=== PATIENT | male | born 1965 | race Caucasian/White ===

== ENCOUNTER 2018-12-17 17:30 | Emergency (ER) | payer SELFPAY ==
--- NOTE | 2018-12-17 19:09 | RAD REPORT ---
EXAM DESCRIPTION: RAD - Shoulder Left 2 View - 12/17/2018 6:49 pm CLINICAL HISTORY: Left shoulder pain FINDINGS: No fracture or dislocation is seen.
--- NOTE | 2018-12-17 19:15 | ER ---
Nurse's Notes [facility] Name: Cortez Mckeon Age: 53 yrs Sex: Male : 1965 Arrival Date: 12/17/2018 Time: 17:34 Bed 28 Private MD: Diagnosis: Other sprain of shoulder joint Presentation: 12/17 17:39 Presenting complaint: Slipped while holding on to bar above head with left arm, now c/o hb left arm pain 2/10. Transition of care: patient was not received from another setting of care. Onset of symptoms was December 17, 2018. Risk Assessment: Do you want to hurt yourself or someone else? Patient reports no desire to harm self or others. Initial Sepsis Screen: Does the patient meet any 2 criteria? No. Patient's initial sepsis screen is negative. Does the patient have a suspected source of infection? No. Patient's initial sepsis screen is negative. Care prior to arrival: None. 17:39 Method Of Arrival: Ambulatory 17:39 Acuity: AGUS 4 hb Triage Assessment: 18:05 Injury Description: pulled the muscle. rv Historical: - Allergies: 17:40 No Known Allergies; hb - Home Meds: 17:40 None [Active]; hb - PMHx: 17:40 None; hb - PSHx: 17:40 None; hb - Immunization history:: Adult Immunizations up to date. - Social history:: Smoking status: Patient/guardian denies using tobacco. - Ebola Screening: : No symptoms or risks identified at this time. Screenin:04 Abuse screen: Denies threats or abuse. Denies injuries from another. Nutritional rv screening: No deficits noted. Tuberculosis screening: No symptoms or risk factors identified. Fall Risk None identified. Assessment: 18:03 General: Appears in no apparent distress. comfortable, Behavior is calm, cooperative. rv Pain: Complains of pain in left shoulder Pain currently is 2 out of 10 on a pain scale. at worst was 5 out of 10 on a pain scale. Neuro: Level of Consciousness is awake, alert, obeys commands, Oriented to person, place, time, situation. Cardiovascular: Patient's skin is warm and dry. Respiratory: Airway is patent. GI: No signs and/or symptoms were reported involving the gastrointestinal system. : No signs and/or symptoms were reported regarding the genitourinary system. EENT: No signs and/or symptoms were reported regarding the EENT system. Derm: Skin is intact. Musculoskeletal: Range of motion: limited in left shoulder Swelling absent Reports pain in left shoulder. Vital Signs: 17:39 BP 140 / 74; Pulse 57; Resp 16; Temp 97.5; Pulse Ox 98% on R/A; Weight 60 kg; Height 5 hb ft. 6 in. (168 cm); Pain 2/10; 19:24 BP 129 / 63; Pulse 61; Resp 16; Temp 98; Pulse Ox 99% on R/A; rv 17:39 Body Mass Index 21.26 (60.00 kg, 168 cm) hb ED Course: 17:34 Patient arrived in ED. as 17:39 Triage completed. hb 17:39 Arm band placed on. hb 17:41 Edwin Cardoso PA is PHCP. [facility] 17:41 Denilson Hill MD is Attending Physician. [facility] 18:00 Christopher Casanova, DEBORAH is Primary Nurse. rv 18:05 Patient has correct armband on for positive identification. Bed in low position. Call rv light in reach. Side rails up X 1. Pulse ox on. NIBP on. Warm blanket given. Ice pack to injury. 18:51 Shoulder Left (2 View) XRAY In Process Unspecified. EDMS 19:23 No provider procedures requiring assistance completed. Patient did not have IV access rv during this emergency room visit. Sling applied to left arm. Administered Medications: No medications were administered Outcome: 19:13 Discharge ordered by . [facility] 19:23 Discharged to home ambulatory. rv 19:23 Condition: good 19:23 Discharge instructions given to patient, Instructed on discharge instructions, follow up and referral plans. medication usage, Demonstrated understanding of instructions, follow-up care, medications, Prescriptions given X 1. 19:24 Patient left the ED. rv Signatures: Dispatcher [employer] EDMS Edwin Cardoso PA PA jmm Martinez, Amelia as Baxter, Heather, RN RN Christopher Casanova, DEBORAH RN rv
--- NOTE | 2018-12-17 19:15 | EDPHYS ---
Physician Documentation [facility] Name: Cortez Mckeon Age: 53 yrs Sex: Male : 1965 Arrival Date: 12/17/2018 Time: 17:34 Bed 28 Private MD: ED Physician Denilson Hill HPI: 12/17 17:58 This 53 yrs old Male presents to ER via Ambulatory with complaints of jmm Shoulder Injury. 17:58 The patient or guardian complains of an injury, pain, that is acute. Onset: The jmm symptoms/episode began/occurred acutely, just prior to arrival. Modifying factors: the symptoms are alleviated by remaining still, The symptoms are aggravated by movement, rotation of arm. Associated signs and symptoms: Pertinent negatives: chest pain, diaphoresis, dyspnea, neck pain, shortness of breath, tingling. This is a 53 year old male with no chronic medical conditions that presents to the ED with complaints of left shoulder pain which began after the patient tripped and grabbed a rail with his left arm. Patient denies other injury. . Historical: - Allergies: 17:40 No Known Allergies; hb - Home Meds: 17:40 None [Active]; hb - PMHx: 17:40 None; hb - PSHx: 17:40 None; hb - Immunization history:: Adult Immunizations up to date. - Social history:: Smoking status: Patient/guardian denies using tobacco. - Ebola Screening: : No symptoms or risks identified at this time. ROS: 17:58 Constitutional: Negative for fever, chills, and weight loss, Cardiovascular: Negative jmm for chest pain, palpitations, and edema, Respiratory: Negative for shortness of breath, cough, wheezing, and pleuritic chest pain. 17:58 MS/extremity: Positive for injury or acute deformity, pain. 17:58 All other systems are negative. Exam: 17:58 Constitutional: This is a well developed, well nourished patient who is awake, alert, jmm and in no acute distress. Head/Face: atraumatic. Eyes: EOMI, no conjunctival erythema appreciated ENT: Moist Mucus Membranes Neck: Trachea midline, Supple Chest/axilla: Normal chest wall appearance and motion. Cardiovascular: Regular rate and rhythm. No edema appreciated Respiratory: Normal respirations, no respiratory distress appreciated Abdomen/GI: Non distended, soft Back: Normal ROM Skin: General appearance color normal 17:58 Musculoskeletal/extremity: painful external rotation appreciated, full radial pulse, full electric range preparer strength, no bony tenderness appreciated, compartments are soft, NVI. 17:58 Skin: Appearance: Color: normal in color. 17:58 Neuro: Orientation: is normal, Mentation: is normal, Memory: is normal. 17:58 Psych: Behavior/mood is pleasant, cooperative. Vital Signs: 17:39 BP 140 / 74; Pulse 57; Resp 16; Temp 97.5; Pulse Ox 98% on R/A; Weight 60 kg; Height 5 hb ft. 6 in. (168 cm); Pain 2/10; 19:24 BP 129 / 63; Pulse 61; Resp 16; Temp 98; Pulse Ox 99% on R/A; rv 17:39 Body Mass Index 21.26 (60.00 kg, 168 cm) hb Procedures: 17:58 Splinting: Splint applied to left arm using sling, Examined by me, post splint [facility] application: neurovascular intact, 2+ distal pulses palpable, brisk capillary refill noted, Patient tolerated well. MDM: 17:58 Patient medically screened. [facility] 19:13 Data reviewed: vital signs, nurses notes. Counseling: I had a detailed discussion with [facility] the patient and/or guardian regarding: the historical points, exam findings, and any diagnostic results supporting the discharge/admit diagnosis, radiology results, the need for outpatient follow up, to return to the emergency department if symptoms worsen or persist or if there are any questions or concerns that arise at home. 19:13 ED course: Patient advised to follow up with ortho and otherwise given strict return [facility] precautions. Patient understood and agrees with the plan of care. . 12/17 17:58 Order name: Shoulder Left (2 View) XRAY; Complete Time: 19:12 [facility] 12/17 19:13 Order name: Sling; Complete Time: 19:13 [facility] Administered Medications: No medications were administered Disposition: 12/17/18 19:13 Discharged to Home. Impression: Other sprain of shoulder joint. - Condition is Stable. - Discharge Instructions: Shoulder Sprain. - Prescriptions for Ibuprofen 800 mg Oral Tablet - take 1 tablet by ORAL route every 12 hours As needed take with food; 20 tablet. - Medication Reconciliation Form, Thank You Letter, Antibiotic Education, Prescription Opioid Use form. - Follow up: Private Physician; When: 2 - 3 days; Reason: Recheck today's complaints, Continuance of care, Re-evaluation by your physician. Addendum: 12/19/2018 18:34 Co-signature as Attending Physician, Denilson Hill MD. g s Signatures: Dispatcher [employer] EDMS Edwin Cardoso PA PA jmm Baxter, Heather, RN RN Denilson Hill MD MD gs Vicente, Ronaldo, RN RN rv Corrections: (The following items were deleted from the chart) 12/17 19:24 19:13 12/17/2018 19:13 Discharged to Home. Impression: Other sprain of shoulder joint. rv Condition is Stable. Forms are Medication Reconciliation Form, Thank You Letter, Antibiotic Education, Prescription Opioid Use. Follow up: Private Physician; When: 2 - 3 days; Reason: Recheck today's complaints, Continuance of care, Re-evaluation by your physician. ben
== END 2018-12-17 19:24 | disposition home or self-care (01) ==
LOC: ER 17:30
PROC: 2W39X1Z Immobilization of Left Upper Extremity using Splint (ICD-10-PCS; principal; 2018-12-17)
DX: S43.402A Unspecified sprain of left shoulder joint, initial encounter (principal); W01.0XXA Fall on same level from slipping, tripping and stumbling without subsequent striking against object, initial encounter
CPT/HCPCS: 99284